=== PATIENT | female | born 1955 | race Caucasian/White ===

== ENCOUNTER → 2016-08-18 | Outpatient (CLI) | payer MEDICAID ==
--- NOTE | 2016-08-18 12:04 | REP ---
LEFT SHOULDER, THREE VIEWS: HISTORY: Impingement syndrome. There is no acute fracture or dislocation. The joint spaces are normal in appearance. IMPRESSION: There is no acute fracture or dislocation. Signed by Jan Paz MD 08/18/2016 12:06 P
== END ==
LOC: M LRY 10:40
PROVIDERS: ATTEND Family Medicine
DX: M75.42 Impingement syndrome of left shoulder (principal)

== ENCOUNTER → 2016-08-28 | Outpatient (CLI) | payer MEDICAID ==
--- NOTE | 2016-08-28 10:43 | REP ---
Chest x-ray: Two views. History: Psoriasis. Question pulmonary medication toxicity. 251.81 and 277.899. Comparison chest x-ray July 02, 2015. Findings: The lungs are symmetrically somewhat hyperinflated but remain clear. The pleural angles are sharp. Heart size is normal. The aorta is calcific. Impression: Hyperinflation consistent with some degree of COPD. No acute disease. Signed by Nirmal Dillard MD 08/28/2016 02:32 P
[2016-08-28 11:39] LABS: BASO % 0.4 % (0.0-1.0); EOS # 0.4 K/mm3 (0.0-0.50); EOS % 4.5 % (0.0-3.0); LARGE UNSTAINED CELL # 0.2 K/mm3 (0.0-0.4); LARGE UNSTAINED CELL % 2.3 % (0.0-4.0); LYMPH # 2.2 K/mm3 (1.5-4.5); LYMPH % 24.5 % (24.0-44.0); MEAN CORPUSCULAR HEMOGLOBIN 27.9 pg (27.0-33.0); MEAN CORPUSCULAR HGB CONC 32.1 g/dl (32.0-36.5); MONO # 0.6 K/mm3 (0.0-0.8); MONO % 6.3 % (0.0-5.0); NEUTROPHILS # 5.6 K/mm3 (1.8-7.7); NEUTROPHILS % 62.1 % (36.0-66.0); PLATELET COUNT, AUTOMATED 367 k/mm3 (150-450); RED CELL DISTRIBUTION WIDTH 12.6 % (11.5-14.5)
[2016-08-28 12:01] LABS: ALBUMIN 3.9 GM/DL (3.2-5.2); ALBUMIN/GLOBULIN RATIO 1.05 (1.00-1.93); ALKALINE PHOSPHATASE 83 U/L (45-117); ALT/SGPT 20 U/L (12-78); ANION GAP 9 MEQ/L (8-16); AST/SGOT 24 U/L (15-37); BILIRUBIN,DIRECT < 0.1 MG/DL (0.0-0.2); BILIRUBIN,TOTAL 0.7 MG/DL (0.2-1.0); BLOOD UREA NITROGEN 8 MG/DL (7-18); CALCIUM LEVEL 9.3 MG/DL (8.8-10.2); CARBON DIOXIDE LEVEL 31 MEQ/L (21-32); CHLORIDE LEVEL 102 MEQ/L (98-107); CREATININE FOR GFR 0.89 MG/DL (0.55-1.02); GLOMERULAR FILTRATION RATE > 60.0 (>45); GLUCOSE, FASTING 89 MG/DL (80-110); PHOSPHORUS LEVEL 4.7 MG/DL (2.5-4.9); POTASSIUM SERUM 4.4 MEQ/L (3.5-5.1); SODIUM LEVEL 142 MEQ/L (136-145); TOTAL PROTEIN 7.6 GM/DL (6.4-8.2)
== END ==
LOC: M LRY 08:41
PROVIDERS: ATTEND Nurse Practitioner Family
DX: L40.0 Psoriasis vulgaris (principal); Z51.81 Encounter for therapeutic drug level monitoring; Z79.899 Other long term (current) drug therapy

== ENCOUNTER → 2017-10-12 | Outpatient (CLI) | payer MEDICAID, OTHER ==
[2017-10-12 16:15] LABS: BASO % 0.4 % (0.0-1.0); EOS # 0.4 10^3/uL (0.0-0.50); EOS % 4.8 % (0.0-3.0); HEMATOCRIT 39.2 % (36.0-47.0); HEMOGLOBIN 12.4 g/dl (12.0-16.0); IMMATURE GRANULOCYTE % 0.5 % (0-3.0); LYMPH # 2.4 10^3/uL (1.5-4.5); LYMPH % 27.9 % (24.0-44.0); MEAN CORPUSCULAR HEMOGLOBIN 27.6 pg (27.0-33.0); MEAN CORPUSCULAR HGB CONC 31.6 g/dl (32.0-36.5); MEAN CORPUSCULAR VOLUME 87.1 fl (80.0-96.0); MONO # 0.8 10^3/uL (0.0-0.8); MONO % 9.8 % (0.0-5.0); NEUTROPHILS # 4.8 10^3/uL (1.8-7.7); NEUTROPHILS % 56.6 % (36.0-66.0); PLATELET COUNT, AUTOMATED 388 10^3/uL (150-450); WHITE BLOOD COUNT 8.5 10^3/uL (4.0-10.0)
[2017-10-12 16:56] LABS: ALBUMIN 3.8 GM/DL (3.2-5.2); ALBUMIN/GLOBULIN RATIO 1.12 (1.00-1.93); ALKALINE PHOSPHATASE 75 U/L (45-117); ALT/SGPT 18 U/L (12-78); ANION GAP 7 MEQ/L (8-16); AST/SGOT 21 U/L (7-37); BILIRUBIN,DIRECT 0.1 MG/DL (0.0-0.2); BILIRUBIN,TOTAL 0.6 MG/DL (0.2-1.0); BLOOD UREA NITROGEN 12 MG/DL (7-18); CALCIUM LEVEL 9.1 MG/DL (8.8-10.2); CARBON DIOXIDE LEVEL 31 MEQ/L (21-32); CHLORIDE LEVEL 99 MEQ/L (98-107); CREATININE FOR GFR 0.82 MG/DL (0.55-1.30); GLOMERULAR FILTRATION RATE > 60.0 (>45); GLUCOSE, FASTING 95 MG/DL (70-100); PHOSPHORUS LEVEL 3.6 MG/DL (2.5-4.9); SODIUM LEVEL 137 MEQ/L (136-145); TOTAL PROTEIN 7.2 GM/DL (6.4-8.2)
[2017-10-14 10:20] LABS: QUANTIFERON GOLD TB Negative (Negative); TB Test (QFT) Antigen 0.02 IU/mL (.); TB Test (QFT) Antigen Minus Ni <0.01 IU/mL (.); TB Test (QFT) Mitogen 6.47 IU/mL (.); TB Test (QFT) Nil 0.03 IU/mL (.)
== END ==
LOC: M LRY 11:22
DX: Z51.81 Encounter for therapeutic drug level monitoring (principal); Z79.899 Other long term (current) drug therapy; L40.0 Psoriasis vulgaris
CPT/HCPCS: 80076

== ENCOUNTER → 2018-09-05 | Outpatient (CLI) | payer OTHER ==
--- NOTE | 2018-09-05 11:28 | REP ---
PA and lateral chest: Comparison is 10/12/2017. The lung clark are chronically hyperinflated, unchanged. The interstitium is normal. There are no infiltrates. There are no pleural effusions. There is a 6 mm nodular density in the right apex in the area of rib and clavicle superimposition, not present previously. This is nonspecific and could be superimposition artifact or could be a new lung nodule. Follow-up CT is recommended for further evaluation. Impression: New 5 mm nodule like density in the right apex as described. Follow-up CT is recommended for confirmation. Chronic hyperinflation, unchanged. Otherwise, negative PA and lateral chest. Electronically Signed by Jose Elise MD 09/05/2018 11:20 A
[2018-09-05 16:47] LABS: BASO # 0.1 10^3/uL (0.0-0.2); BASO % 0.6 % (0.0-1.0); EOS # 0.5 10^3/uL (0.0-0.50); EOS % 5.2 % (0.0-3.0); HEMATOCRIT 39.5 % (36.0-47.0); HEMOGLOBIN 12.6 g/dl (12.0-15.5); LYMPH # 2.7 10^3/uL (1.5-4.5); LYMPH % 28.1 % (24.0-44.0); MEAN CORPUSCULAR HEMOGLOBIN 28.1 pg (27.0-33.0); MEAN CORPUSCULAR HGB CONC 31.9 g/dl (32.0-36.5); MONO # 0.9 10^3/uL (0.0-0.8); MONO % 9.1 % (0.0-5.0); NEUTROPHILS # 5.5 10^3/uL (1.8-7.7); NEUTROPHILS % 56.6 % (36.0-66.0); PLATELET COUNT, AUTOMATED 428 10^3/uL (150-450); RED BLOOD COUNT 4.49 10^6/uL (4.00-5.40); WHITE BLOOD COUNT 9.7 10^3/uL (4.0-10.0)
[2018-09-05 17:01] LABS: ALBUMIN 3.9 GM/DL (3.2-5.2); ALT/SGPT 19 U/L (12-78); BILIRUBIN,DIRECT < 0.1 MG/DL (0.0-0.2); BILIRUBIN,TOTAL 0.4 MG/DL (0.2-1.0); BLOOD UREA NITROGEN 9 MG/DL (7-18); CALCIUM LEVEL 9.3 MG/DL (8.8-10.2); CARBON DIOXIDE LEVEL 27 MEQ/L (21-32); CHLORIDE LEVEL 103 MEQ/L (98-107); CREATININE FOR GFR 0.88 MG/DL (0.55-1.30); GLOMERULAR FILTRATION RATE > 60.0 (>45); GLUCOSE, FASTING 92 MG/DL (70-100); PHOSPHORUS LEVEL 3.8 MG/DL (2.5-4.9); POTASSIUM SERUM 3.9 MEQ/L (3.5-5.1); SODIUM LEVEL 138 MEQ/L (136-145); TOTAL PROTEIN 7.4 GM/DL (6.4-8.2)
== END ==
LOC: M LRY 10:09
PROVIDERS: ATTEND Nurse Practitioner Family
DX: L40.0 Psoriasis vulgaris (principal); Z51.81 Encounter for therapeutic drug level monitoring; Z79.899 Other long term (current) drug therapy

== ENCOUNTER → 2018-11-15 | Outpatient (REF) | payer MEDICAID ==
[2018-11-15 12:09] LABS: BLOOD UREA NITROGEN 9 MG/DL (7-18); CARBON DIOXIDE LEVEL 33 MEQ/L (21-32); CHLORIDE LEVEL 99 MEQ/L (98-107); CHOLESTEROL LEVEL 235 MG/DL (<200); CHOLESTEROL RISK RATIO 5.465 (<5); CREATININE FOR GFR 0.83 MG/DL (0.55-1.30); GLOMERULAR FILTRATION RATE > 60.0 (>45); GLUCOSE, FASTING 92 MG/DL (70-100); HDL CHOLESTEROL 43 MG/DL (>40); LDL CHOLESTEROL 158.2 MG/DL (<100); NON-HDL-C 192 MG/DL; POTASSIUM SERUM 3.9 MEQ/L (3.5-5.1); SODIUM LEVEL 137 MEQ/L (136-145); TRIGLYCERIDES LEVEL 169 MG/DL (<150)
== END ==
LOC: M SFHCLERA 09:48
PROVIDERS: ATTEND Family Medicine
DX: I10 Essential (primary) hypertension (principal)

== ENCOUNTER → 2019-04-11 | Outpatient (REF) | payer OTHER, MEDICAID | LOC: M SFHCPLAZ 19:20 | PROVIDERS: ATTEND Dermatology | DX: D22.62 Melanocytic nevi of left upper limb, including shoulder (principal) ==

== ENCOUNTER → 2020-01-09 | Outpatient (CLI) | payer OTHER ==
--- NOTE | 2020-01-14 10:51 | REP ---
BILATERAL MAMMOGRAM WITH 3D TOMOSYNTHESIS: No comparison studies. No family history of breast cancer. Tyrer-Cuzick lifetime risk of breast cancer 6.2%. MLO and CC views of both breast performed with 3D tomosynthesis. There is moderate fibroglandular tissue present bilaterally. Volpara breast density is B. Anterolateral in the right breast , a possible smoothly marginated 4 mm nodular density is seen only on the CC view. Anterolaterally in the left breast, there is a possible nodular density 6 mm in diameter also only seen on the CC view. There is no other evidence of mass or clustered microcalcifications. There are coarse benign type calcifications bilaterally. There are small axillary lymph nodes bilaterally. IMPRESSION: BIRADS 0: BI-RADS/ACR category 0 mammogram, Incomplete: Need additional imaging evaluation and/or prior mammograms for comparison. ACR 0 incomplete. Possible 4 mm nodular density anterolaterally right breast and 6 mm nodular density anterolaterally left breast. Both are only seen in the CC projection. Recommend spot compression views and ultrasound for further evaluation. This mammogram was interpreted with the aid of an FDA-approved computer-aided detection system. A. Negative x-ray reports should not delay biopsy if a dominant or clinically suspicious mass is present. B. Four to eight percent of cancers are not identified by x-ray. C. Adenosis and dense breasts may obscure an underlying neoplasm. The patient states that she or he has not had a clinical breast exam in over a year. The patient letter being requested is M0
--- NOTE | 2020-01-19 15:39 | DEXA ---
AP SPINE L1 - L4 1.295 0.8 2.3 LT FEMUR TOTAL 0.954 -0.4 0.7 LT NECK 0.906 -0.9 0.5 RT FEMUR TOTAL 0.962 -0.4 0.8 RT NECK 0.823 -1.5 -0.1 TOTAL BODY TOTAL OTHER COMMENTS: Normal bone densitometry of the spine. Normal bone densitometry of the left hip. There is low bone density of the right hip. The increased density of the spine does represent a significant change. The increased density of the left hip does represent a significant change. The increased density of the right hip does represent significant change. The density of the spine has increased 4.4% since the initial exam on 06/01/2011. The increased 5.4% since the most recent exam on 07/19/2016. The density of the left hip has increased 7.3% since the initial exam on 06/01/2011. The density of the left hip has increased 6.1% since the most recent exam on 07/19/2016. The density of the right hip has increased 7.2% since the initial exam on 06/01/2011. The density of the right hip has increased 7.5% since the most recent exam on 07/19/2016. FOLLOW-UP: Recommendation for the next bone density exam: 2 years. [place]
== END ==
LOC: M WHC 13:16
PROVIDERS: ATTEND Family Medicine
DX: Z12.31 Encounter for screening mammogram for malignant neoplasm of breast (principal); M85.851 Other specified disorders of bone density and structure, right thigh

== ENCOUNTER → 2020-04-23 | Outpatient (CLI) | payer OTHER | LOC: M PLALAB 11:48 | PROVIDERS: ATTEND Surgery | DX: Z80.42 Family history of malignant neoplasm of prostate (principal) ==

== ENCOUNTER → 2020-11-01 | Outpatient (CLI) | payer OTHER ==
--- NOTE | 2020-11-01 11:16 | REP ---
INDICATION: 6 MONTH F/U, CAT 3. COMPARISON: 02/12/2020, 01/09/2020, 09/25/2008. TECHNIQUE: MLO and CC views bilateral breasts with tomosynthesis. FINDINGS: Moderate heterogeneous fibroglandular tissue is again noted bilaterally. Smoothly marginated subcentimeter nodule is again seen laterally and anteriorly in the right breast on the CC view. This is stable. The previously noted nodular density in the anterolateral left breast is not seen on today's exam. Parenchymal pattern is unchanged. No new mass is seen. No clustered microcalcifications are seen. Benign calcifications are present bilaterally. Right axillary lymph nodes are mildly prominent in size compared to the left. The Volpara volumetric breast density pattern is B. IMPRESSION: BIRADS/ACR category 3, probably benign. Smoothly marginated subcentimeter nodule anterolateral right breast is stable. The previously noted nodular density in the anterolateral left breast in the CC projection is not seen on today's exam, there is heterogeneously dense fibroglandular tissue throughout the left breast. No new suspicious mass or clusters of microcalcifications. Right axillary lymph nodes are slightly more prominent on the left, likely due to recent COVID vaccine. Recommend follow-up bilateral mammogram in 6 months to ensure stability of the above findings. This patient's Tyrer-Cuzick lifetime breast cancer risk assessment score is 6.2%. This mammogram was interpreted with the aid of an FDA-approved computer-aided detection system. The patient states she had a clinical breast exam in October 2020. The patient letter being requested is M3. RECOMMENDATION: Recommend six-month follow-up bilateral mammogram as discussed in detail above. <Electronically signed by Jose Chris > 11/01/20 [id number]
== END ==
LOC: M WHC 09:48
PROVIDERS: ATTEND Surgery
DX: R92.8 Other abnormal and inconclusive findings on diagnostic imaging of breast (principal); N63.10 Unspecified lump in the right breast, unspecified quadrant
CPT/HCPCS: 77066; G0279

== ENCOUNTER → 2020-12-01 | Outpatient (CLI) | payer MEDICARE, OTHER ==
--- NOTE | 2020-12-01 10:37 | REP ---
INDICATION: LOW BACK PAIN COMPARISON: 05/17/2011 TECHNIQUE: AP, lateral, bilateral oblique, and coned-down views of the lumbar spine. FINDINGS: Alignment and lordosis maintained. No acute fracture/compression injury or subluxation. Early advanced degenerative changes at L5-S1 includes endplate sclerosis, marginal spurring, facet hypertrophy and disc space narrowing. Associated chronic spondylolysis cannot be excluded. Moderate degenerative changes noted throughout the remainder of the lumbar spine including endplate sclerosis with decreased disc height and marginal spurring. IMPRESSION: Degenerative changes as noted above primarily involving L5-S1. <Electronically signed by Kvng Owens > 12/01/20 [id number]
[2020-12-01 12:44] LABS: BLOOD UREA NITROGEN 10 MG/DL (7-18); CALCIUM LEVEL 9.7 MG/DL (8.8-10.2); CARBON DIOXIDE LEVEL 29 MEQ/L (21-32); CHLORIDE LEVEL 102 MEQ/L (98-107); CHOLESTEROL LEVEL 213 MG/DL (<200); CHOLESTEROL RISK RATIO 4.733 (<5); CREATININE FOR GFR 0.82 MG/DL (0.55-1.30); GLOMERULAR FILTRATION RATE > 60.0 (>45); GLUCOSE, FASTING 84 MG/DL (70-100); HDL CHOLESTEROL 45 MG/DL (>40); LDL CHOLESTEROL 138 MG/DL (<100); NON-HDL-C 168 MG/DL; POTASSIUM SERUM 3.7 MEQ/L (3.5-5.1); SODIUM LEVEL 138 MEQ/L (136-145); TRIGLYCERIDES LEVEL 152 MG/DL (<150)
== END ==
LOC: M WUC 09:50
PROVIDERS: ATTEND Family Medicine
DX: M54.5 Low back pain (principal); I10 Essential (primary) hypertension

== ENCOUNTER → 2021-03-01 | Outpatient (CLI) | payer MEDICARE ==
--- NOTE | 2021-03-01 15:35 | REP ---
INDICATION: R92.8 6 MO BREAST U/S. Patient underwent screening mammography January 09, 2020 which was BI-RADS category 0 for bilateral nodular opacities. Diagnostic mammography February 12, 2020 with bilateral sonography was interpreted as BI-RADS category 3 in reference to a well-circumscribed small subcentimeter nodule in the anterolateral aspect of each breast. Six-month follow-up mammography was accomplished on November 01, 2020 and the anterolateral nodule in the right breast was felt to be stable. The left breast nodule could not be seen. Bilateral axillary lymph nodes were commented on. Right upper extremity COVID vaccine history August and September of 2020. At the time of the November 01, 2020 study, bilateral six-month follow-up mammography was recommend COMPARISON: Comparison sonography February 12, 2020. Comparison mammography January 09, 2020 and February 12, 2020.. TECHNIQUE: Bilateral inferior and lateral quadrant sonography is performed as originally performed on February 12, 2020. 6:00 to 9:00 on the right and 3:00 to 6:00 on the left with bilateral retroareolar scanning. FINDINGS: Heterogeneous fibroglandular background echotexture is seen bilaterally. On the left there is no evidence of cyst, mass, or suspicious acoustic shadowing. On the right, there is a tiny 0.4 cm retroareolar cyst. The previously noted cyst at 9 o'clock is not apparent. In the 7 o'clock position, there is a 7 x 2 x 5 mm oval-shaped cyst which is not previously noted but has a benign appearance. This is located 2 cm from the nipple. This has a low shear wave elastography number, 15.9 In the right axilla there are multiple normal appearing lymph nodes with thin cortical margins and preserved fatty hilar architecture. The largest of these measures 1.4 x 1.8 x 0.5 cm. No suspicious lymph node is seen. IMPRESSION: BI-RADS category 2 benign findings. Annual screening mammography can be beginning 6 months hence. <Electronically signed by Alonzo Dillard > 03/01/21 [id number]
== END ==
LOC: M WHC 09:23
PROVIDERS: ATTEND Surgery
DX: R92.8 Other abnormal and inconclusive findings on diagnostic imaging of breast (principal); N60.11 Diffuse cystic mastopathy of right breast

== ENCOUNTER → 2021-04-19 | Outpatient (CLI) | payer OTHER ==
--- NOTE | 2021-04-19 10:19 | REP ---
INDICATION: PERSONAL HX NICOTINE DEPENDENCE. COMPARISON: Multiple the latest 03/01/2020 also low-dose screening CT of the lungs TECHNIQUE: Axial noncontrast images from the thoracic inlet to the upper abdomen using low-dose lung screening technique (LDCT). As per the protocol only lung window images were sent to the read station for interpretation. FINDINGS: Once again, there is evidence of biapical pleuroparenchymal scarring status quo. Slightly irregular right upper lobe ground-glass nodule is unchanged. Just inferior to this the 2nd slightly irregular ground-glass nodules also unchanged. The 2 right middle lobe ground-glass nodules are completely stable. The barely perceptible right lower lobe ground-glass nodule is unchanged. The barely perceptible left lower lobe ground-glass nodules unchanged. No new abnormal nodules, masses, or opacities have developed. Grossly, the mediastinum and pulmonary cleve are stable. Grossly, the imaged upper abdomen and imaged osseous structures are stable. IMPRESSION: Stable lung rads category [address] low-dose screening CT examination of the lungs. Follow-up as per the revised Fleischner society criteria. <Electronically signed by Oz Miller > 04/19/21 [id number]
== END ==
LOC: M RAD 09:36
PROVIDERS: ATTEND Internal Medicine Pulmonary Disease
DX: Z12.2 Encounter for screening for malignant neoplasm of respiratory organs (principal); Z87.891 Personal history of nicotine dependence; R91.8 Other nonspecific abnormal finding of lung field

== ENCOUNTER → 2021-06-06 | Outpatient (CLI) | payer MEDICARE ==
--- NOTE | 2021-06-06 10:51 | REP ---
INDICATION: PETER DIAG MAMMO/6 MO F/U CAT 3. COMPARISON: Multiple prior mammograms the most recent a bilateral diagnostic mammogram of 11/01/2020. TECHNIQUE: 2D and 3D bilateral craniocaudal and oblique views of both breasts were obtained. FINDINGS: The Volpara volumetric breast density pattern is C, the breasts are heterogeneously dense, which may obscure small masses. The 3 mm in diameter retroareolar isodense nodule in the right breast is unchanged. The left breast has a stable appearance. IMPRESSION: BIRADS/ACR : Category 2: Benign finding. This patient's [facility] lifetime breast cancer risk assessment score is 5.9%. This mammogram was interpreted with the aid of an FDA-approved computer-aided detection system. The patient states she had a clinical breast exam in May 2021. The patient letter being requested is M2. RECOMMENDATION: Repeat screening mammography recommended 1 year (for women over 40). <Electronically signed by Kyle Mott > 06/06/21 [id number]
== END ==
LOC: M WHC 09:48
PROVIDERS: ATTEND Nurse Practitioner Women's Health
DX: R92.8 Other abnormal and inconclusive findings on diagnostic imaging of breast (principal); N63.41 Unspecified lump in right breast, subareolar
CPT/HCPCS: 77066; G0279

== ENCOUNTER → 2021-12-12 | Outpatient (CLI) | payer MEDICARE, OTHER, MEDICAID | LOC: M WUC 09:24 | PROVIDERS: ATTEND Student in an Organized Health Care Education/Training Program | DX: M25.551 Pain in right hip (principal); M85.80 Other specified disorders of bone density and structure, unspecified site ==

== ENCOUNTER → 2021-12-20 | Outpatient (CLI) | payer MEDICARE, OTHER | LOC: M WHC 10:52 | PROVIDERS: ATTEND Student in an Organized Health Care Education/Training Program | DX: M85.80 Other specified disorders of bone density and structure, unspecified site (principal); Z53.9 Procedure and treatment not carried out, unspecified reason ==

== ENCOUNTER → 2022-01-09 | Outpatient (CLI) | payer MEDICARE, OTHER | LOC: M WHC 08:56 | PROVIDERS: ATTEND Student in an Organized Health Care Education/Training Program | DX: Z13.820 Encounter for screening for osteoporosis (principal); M85.80 Other specified disorders of bone density and structure, unspecified site; M85.88 Other specified disorders of bone density and structure, other site ==

== ENCOUNTER → 2022-05-01 | Outpatient (CLI) | payer MEDICARE | LOC: M RAD 09:45 | PROVIDERS: ATTEND Internal Medicine Pulmonary Disease | DX: R91.8 Other nonspecific abnormal finding of lung field (principal); I70.0 Atherosclerosis of aorta; I25.10 Atherosclerotic heart disease of native coronary artery without angina pectoris; K55.1 Chronic vascular disorders of intestine; K44.9 Diaphragmatic hernia without obstruction or gangrene; J43.9 Emphysema, unspecified; J98.4 Other disorders of lung; K80.20 Calculus of gallbladder without cholecystitis without obstruction ==

== ENCOUNTER → 2022-05-10 | Outpatient (CLI) | payer MEDICARE ==
[2022-05-10 15:07] LABS: HEMATOCRIT 39.9 % (36.0-47.0); HEMOGLOBIN 12.4 g/dl (12.0-15.5); MEAN CORPUSCULAR HEMOGLOBIN 27.6 pg (27.0-33.0); MEAN CORPUSCULAR HGB CONC 31.1 g/dl (32.0-36.5); MEAN CORPUSCULAR VOLUME 88.9 fl (80.0-96.0); PLATELET COUNT, AUTOMATED 359 10^3/uL (150-450); RED BLOOD COUNT 4.49 10^6/uL (4.00-5.40); WHITE BLOOD COUNT 8.5 10^3/uL (4.0-10.0)
[2022-05-10 15:43] LABS: APPEARANCE, URINE MANUAL CLEAR (CLEAR); BILIRUBIN, URINE MANUAL NEGATIVE (NEGATIVE); BLOOD URINE MANUAL TRACE (NEGATIVE); COLOR, URINE MANUAL LT YELLOW (YELLOW); GLUCOSE, URINE (UA) MANUAL NEGATIVE (NEGATIVE); KETONE, URINE MANUAL NEGATIVE (NEGATIVE); LEUKOCYTE ESTERASE, URINE MAN TRACE (NEGATIVE); NITRITE, URINE MANUAL NEGATIVE (NEGATIVE); PROTEIN, URINE MANUAL NEGATIVE (NEGATIVE); SPECIFIC GRAVITY,URINE MANUAL 1.015 (1.002-1.035); UROBILINOGEN, URINE MANUAL NORMAL (NORMAL)
[2022-05-10 16:10] LABS: POTASSIUM SERUM 3.7 MEQ/L (3.5-5.1)
[2022-05-10 16:55] LABS: BACTERIA, URINE SMALL AMOUNT; RBC, URINE 0-1 /hpf (0-3); SQUAMOUS EPITHELIAL CELL URINE MOD AMOUNT /hpf (SMALL AMT); TRANSITIONAL EPI CELLS, URINE MOD AMOUNT /hpf
== END ==
LOC: M EKG 14:25
PROVIDERS: ATTEND Orthopaedic Surgery
DX: M54.16 Radiculopathy, lumbar region (principal)

== ENCOUNTER → 2022-12-01 | Outpatient (CLI) | payer MEDICARE, OTHER | LOC: M PLAIMG 08:39 | PROVIDERS: ATTEND Internal Medicine Pulmonary Disease | DX: R91.8 Other nonspecific abnormal finding of lung field (principal); J98.4 Other disorders of lung ==

== ENCOUNTER → 2023-03-07 | Outpatient (CLI) | payer MEDICARE | LOC: M RAD 08:49 | PROVIDERS: ATTEND Internal Medicine Pulmonary Disease | DX: R91.8 Other nonspecific abnormal finding of lung field (principal); I25.10 Atherosclerotic heart disease of native coronary artery without angina pectoris; K44.9 Diaphragmatic hernia without obstruction or gangrene; K80.20 Calculus of gallbladder without cholecystitis without obstruction ==

== ENCOUNTER → 2023-08-27 | Outpatient (CLI) | payer MEDICARE, MEDICAID | LOC: M PLARAD 13:31 | PROVIDERS: ATTEND Internal Medicine Pulmonary Disease | DX: R91.8 Other nonspecific abnormal finding of lung field (principal) | CPT/HCPCS: 78815; A9552 ==

== ENCOUNTER → 2023-10-05 | Outpatient (CLI) | payer MEDICARE, MEDICAID ==
[2023-10-05 12:18] LABS: PLATELET COUNT, AUTOMATED 390 10^3/uL (150-450)
[2023-10-05 12:31] LABS: INR 1.03; PARTIAL THROMBOPLASTIN TIME 28.4 SECONDS (24.8-34.2); PROTHROMBIN TIME 13.2 SECONDS (12.5-14.5)
== END ==
LOC: M WUC 09:52
PROVIDERS: ATTEND Internal Medicine Pulmonary Disease
DX: R91.8 Other nonspecific abnormal finding of lung field (principal); Z79.01 Long term (current) use of anticoagulants

== ENCOUNTER → 2023-11-13 | Outpatient (CLI) | payer MEDICARE, MEDICAID ==
[~2023-11-13] MED LIST: ACET650T15 PO; AIRD1INH2 INH; ALBU8.5H INH; BIOT1CAP2 PO; BISO1TAB18 PO; EPIP0.3I2 IM; IBUP200C25 PO
== END ==
LOC: M CARPUL 14:14
PROVIDERS: ATTEND Internal Medicine Pulmonary Disease
DX: J44.9 Chronic obstructive pulmonary disease, unspecified (principal)

== ENCOUNTER → 2023-11-16 | Outpatient (CLI) | payer MEDICARE, MEDICAID ==
[2023-11-16 11:20] LABS: INR 1.05; PARTIAL THROMBOPLASTIN TIME 27.8 SECONDS (24.8-34.2); PROTHROMBIN TIME 13.4 SECONDS (12.5-14.5)
[2023-11-16 11:24] LABS: BLOOD UREA NITROGEN 13 MG/DL (9-23); CALCIUM LEVEL 9.4 MG/DL (8.3-10.6); CARBON DIOXIDE LEVEL 31 MMOL/L (20-31); CHLORIDE LEVEL 101 MMOL/L (98-107); CREATININE FOR GFR 0.92 MG/DL (0.55-1.30); GLOMERULAR FILTRATION RATE > 60.0 (>45); GLUCOSE, FASTING 80 MG/DL (74-106); POTASSIUM SERUM 3.8 MMOL/L (3.5-5.1); SODIUM LEVEL 139 MMOL/L (136-145)
== END ==
LOC: M WUC 08:48
PROVIDERS: ATTEND Surgery
DX: C34.2 Malignant neoplasm of middle lobe, bronchus or lung (principal)

== ENCOUNTER → 2023-12-31 | Outpatient (CLI) | payer MEDICARE, MEDICAID ==
[~2023-12-31] MED LIST changes: +HOME MED LIST COMPLETE! XX SCH; +LIDOCAINE 1% MDV 20ML VIAL As Ordered ONE
[2023-12-31 07:35] VITALS: TEMP 97.5
[2023-12-31 07:59] LABS: HEMATOCRIT 43.3 % (36.0-47.0); HEMOGLOBIN 13.7 g/dl (12.0-15.5); MEAN CORPUSCULAR HEMOGLOBIN 28.4 pg (27.0-33.0); MEAN CORPUSCULAR HGB CONC 31.6 g/dl (32.0-36.5); MEAN CORPUSCULAR VOLUME 89.6 fl (80.0-96.0); PLATELET COUNT, AUTOMATED 323 10^3/uL (150-450); RED BLOOD COUNT 4.83 10^6/uL (4.00-5.40); WHITE BLOOD COUNT 7.4 10^3/uL (4.0-10.0)
[2023-12-31 08:22] LABS: INR 0.95; PARTIAL THROMBOPLASTIN TIME 27.1 SECONDS (24.8-34.2); PROTHROMBIN TIME 12.4 SECONDS (12.5-14.5)
[2023-12-31 11:00] VITALS: BP 154/78; O2SAT 96
== END ==
LOC: M IRPRO 07:26
PROVIDERS: ATTEND Surgery
DX: C34.2 Malignant neoplasm of middle lobe, bronchus or lung (principal)

== ENCOUNTER → 2024-05-05 | Outpatient (CLI) | payer MEDICARE, MEDICAID ==
[~2024-05-05] MED LIST changes: -HOME MED LIST COMPLETE! XX SCH; -LIDOCAINE 1% MDV 20ML VIAL As Ordered ONE
[2024-05-05 10:57] LABS: BASO # 0.1 10^3/uL (0.0-0.2); BASO % 0.8 % (0.0-1.0); EOS # 0.4 10^3/uL (0.0-0.5); EOS % 5.4 % (0.0-3.0); HEMATOCRIT 41.6 % (36.0-47.0); HEMOGLOBIN 13.2 g/dl (12.0-15.5); LYMPH # 1.6 10^3/uL (1.5-5.0); LYMPH % 25.2 % (24.0-44.0); MEAN CORPUSCULAR HEMOGLOBIN 29.3 pg (27.0-33.0); MEAN CORPUSCULAR HGB CONC 31.7 g/dl (32.0-36.5); MEAN CORPUSCULAR VOLUME 92.2 fl (80.0-96.0); MONO # 0.7 10^3/uL (0.0-0.8); MONO % 11.3 % (2.0-8.0); NEUTROPHILS # 3.7 10^3/uL (1.5-8.5); NEUTROPHILS % 57.1 % (36.0-66.0); PLATELET COUNT, AUTOMATED 348 10^3/uL (150-450); RED BLOOD COUNT 4.51 10^6/uL (4.00-5.40); WHITE BLOOD COUNT 6.5 10^3/uL (4.0-10.0)
[2024-05-05 11:24] LABS: CREATININE, URINE 143.6 MG/DL
[2024-05-05 11:25] LABS: MALB URINE SIEMENS < 3.0 MG/L
[2024-05-05 11:28] LABS: ALKALINE PHOSPHATASE 53 U/L (46-116); ALT/SGPT 17 U/L (7.0-40); AST/SGOT 16 U/L (<34); BILIRUBIN,TOTAL 0.9 MG/DL (0.3-1.2); BLOOD UREA NITROGEN 11 MG/DL (9-23); CALCIUM LEVEL 9.7 MG/DL (8.3-10.6); CARBON DIOXIDE LEVEL 30 MMOL/L (20-31); CHLORIDE LEVEL 106 MMOL/L (98-107); CHOLESTEROL LEVEL 206 MG/DL (<200); CHOLESTEROL RISK RATIO 4.49 (<5); CREATININE FOR GFR 0.98 MG/DL (0.55-1.30); GLOMERULAR FILTRATION RATE > 60.0 (>45); GLUCOSE, FASTING 97 MG/DL (74-106); HDL CHOLESTEROL 45.8 MG/DL (>40); LDL CHOLESTEROL 133.6 MG/DL (<100); NON-HDL-C 160.2 MG/DL; POTASSIUM SERUM 4.2 MMOL/L (3.5-5.1); SODIUM LEVEL 139 MMOL/L (136-145); TOTAL PROTEIN 7.3 G/DL (5.7-8.2); TRIGLYCERIDES LEVEL 133 MG/DL (<150)
[2024-05-05 11:43] LABS: HEMOGLOBIN A1c 5.7 % (4.0-6.0)
== END ==
LOC: M PLALAB 07:58
PROVIDERS: ATTEND Student in an Organized Health Care Education/Training Program
DX: Z00.00 Encounter for general adult medical examination without abnormal findings (principal); Z87.39 Personal history of other diseases of the musculoskeletal system and connective tissue; I10 Essential (primary) hypertension; C34.91 Malignant neoplasm of unspecified part of right bronchus or lung; J44.9 Chronic obstructive pulmonary disease, unspecified; Z79.899 Other long term (current) drug therapy; Z79.51 Long term (current) use of inhaled steroids

== ENCOUNTER → 2024-05-19 | Outpatient (CLI) | payer MEDICARE, MEDICAID | LOC: M PLAIMG 12:22 | PROVIDERS: ATTEND Surgery | DX: C34.2 Malignant neoplasm of middle lobe, bronchus or lung (principal) ==

== ENCOUNTER → 2024-05-20 | Outpatient (CLI) | payer MEDICARE, MEDICAID | LOC: M WHC 08:28 | PROVIDERS: ATTEND Student in an Organized Health Care Education/Training Program | DX: Z12.31 Encounter for screening mammogram for malignant neoplasm of breast (principal); Z87.39 Personal history of other diseases of the musculoskeletal system and connective tissue; R92.333 Mammographic heterogeneous density, bilateral breasts; Z78.0 Asymptomatic menopausal state ==

== ENCOUNTER → 2024-05-28 | Outpatient (REF) | payer MEDICARE, MEDICAID, OTHER | LOC: M SFHCPLAZ 15:22 | PROVIDERS: ATTEND Physician Assistant Medical | DX: J02.9 Acute pharyngitis, unspecified (principal) ==

== ENCOUNTER → 2024-06-04 | Outpatient (CLI) | payer MEDICARE, MEDICAID ==
[2024-06-04 10:30] LABS: HEMATOCRIT 43.1 % (36.0-47.0); HEMOGLOBIN 13.6 g/dl (12.0-15.5); MEAN CORPUSCULAR HEMOGLOBIN 29.3 pg (27.0-33.0); MEAN CORPUSCULAR HGB CONC 31.6 g/dl (32.0-36.5); MEAN CORPUSCULAR VOLUME 92.9 fl (80.0-96.0); PLATELET COUNT, AUTOMATED 353 10^3/uL (150-450); RED BLOOD COUNT 4.64 10^6/uL (4.00-5.40); WHITE BLOOD COUNT 8.9 10^3/uL (4.0-10.0)
[2024-06-04 15:25] LABS: MONO REFLEX EBV COMP NEGATIVE (NEGATIVE)
[2024-06-06 13:46] LABS: EBV VIRAL CAPSID AG IGM < 36.00 U/mL (<36.00)
== END ==
LOC: M PLALAB 09:27
PROVIDERS: ATTEND Physician Assistant Medical
DX: J02.9 Acute pharyngitis, unspecified (principal)

== ENCOUNTER → 2024-06-12 | Outpatient (CLI) | payer MEDICARE, MEDICAID ==
[2024-06-12 14:40] LABS: BASO % 0.3 % (0.0-1.0); EOS # 0.5 10^3/uL (0.0-0.5); EOS % 4.4 % (0.0-3.0); HEMATOCRIT 42.9 % (36.0-47.0); HEMOGLOBIN 13.6 g/dl (12.0-15.5); LYMPH # 1.7 10^3/uL (1.5-5.0); LYMPH % 14.7 % (24.0-44.0); MEAN CORPUSCULAR HEMOGLOBIN 28.9 pg (27.0-33.0); MEAN CORPUSCULAR HGB CONC 31.7 g/dl (32.0-36.5); MEAN CORPUSCULAR VOLUME 91.3 fl (80.0-96.0); MONO # 1.1 10^3/uL (0.0-0.8); MONO % 9.2 % (2.0-8.0); NEUTROPHILS # 8.2 10^3/uL (1.5-8.5); NEUTROPHILS % 70.8 % (36.0-66.0); PLATELET COUNT, AUTOMATED 339 10^3/uL (150-450); WHITE BLOOD COUNT 11.6 10^3/uL (4.0-10.0)
[2024-06-12 14:50] LABS: FREE T4 1.11 NG/DL (0.89-1.76)
[2024-06-12 14:51] LABS: THYROID STIMULATING HORMONE 3.903 uIU/ML (0.55-4.78)
== END ==
LOC: M PLALAB 09:41
PROVIDERS: ATTEND Physician Assistant Medical
DX: E04.1 Nontoxic single thyroid nodule (principal)

== ENCOUNTER → 2024-08-08 | Outpatient (CLI) | payer MEDICARE, MEDICAID ==
[~2024-08-08] MED LIST changes: +GABA-1171 PO
== END ==
LOC: M ONCR 08:15
PROVIDERS: ATTEND General Practice
DX: C09.0 Malignant neoplasm of tonsillar fossa (principal); D39.12 Neoplasm of uncertain behavior of left ovary; Z87.891 Personal history of nicotine dependence; Z90.710 Acquired absence of both cervix and uterus; Z85.118 Personal history of other malignant neoplasm of bronchus and lung; Z85.828 Personal history of other malignant neoplasm of skin; Z90.2 Acquired absence of lung [part of]; Z80.1 Family history of malignant neoplasm of trachea, bronchus and lung; Z80.42 Family history of malignant neoplasm of prostate; Z80.8 Family history of malignant neoplasm of other organs or systems; Z91.030 Bee allergy status; Z79.51 Long term (current) use of inhaled steroids; Z79.899 Other long term (current) drug therapy
CPT/HCPCS: 31575; G0463

== ENCOUNTER 2024-09-04 08:57 | Outpatient (RCR) | payer MEDICARE, MEDICAID | END 2024-09-19 | LOC: M ONCR 08:57 | PROVIDERS: ATTEND General Practice | DX: Z51.0 Encounter for antineoplastic radiation therapy (principal); C09.0 Malignant neoplasm of tonsillar fossa ==

== ENCOUNTER → 2024-10-20 | Outpatient (RCR) | payer MEDICARE, MEDICAID | LOC: M ONCR 09-22 08:24 | PROVIDERS: ATTEND General Practice | DX: Z51.0 Encounter for antineoplastic radiation therapy (principal); C09.0 Malignant neoplasm of tonsillar fossa ==

== ENCOUNTER → 2024-10-21 | Outpatient (CLI) | payer MEDICARE, MEDICAID | LOC: M RAD 11:42 | PROVIDERS: ATTEND Nurse Practitioner Family | DX: M79.89 Other specified soft tissue disorders (principal) ==

== ENCOUNTER → 2024-11-19 | Outpatient (RCR) | payer MEDICARE, MEDICAID ==
[~2024-11-19] MED LIST changes: +LIDO15SO8 PO; +MAGICMW SSP; +OXYC1SOL3 PO
== END ==
LOC: M ONCR 10-21 09:50
PROVIDERS: ATTEND General Practice
DX: Z51.0 Encounter for antineoplastic radiation therapy (principal); C09.0 Malignant neoplasm of tonsillar fossa

== ENCOUNTER → 2024-11-20 | Outpatient (CLI) | payer MEDICARE, MEDICAID | LOC: M RAD 10:46 | PROVIDERS: ATTEND Surgery | DX: C34.2 Malignant neoplasm of middle lobe, bronchus or lung (principal); J98.11 Atelectasis; J43.9 Emphysema, unspecified; R91.8 Other nonspecific abnormal finding of lung field; K80.20 Calculus of gallbladder without cholecystitis without obstruction ==

== ENCOUNTER → 2025-01-30 | Outpatient (CLI) | payer MEDICARE, MEDICAID ==
[~2025-01-30] MED LIST changes: +DULO1CAP6 PO; +ONDA-83 PO
== END ==
LOC: M ONCR 09:37
PROVIDERS: ATTEND General Practice
DX: D39.11 Neoplasm of uncertain behavior of right ovary (principal); Z79.899 Other long term (current) drug therapy; Z85.118 Personal history of other malignant neoplasm of bronchus and lung; Z85.43 Personal history of malignant neoplasm of ovary; Z85.818 Personal history of malignant neoplasm of other sites of lip, oral cavity, and pharynx; Z87.891 Personal history of nicotine dependence; Z92.3 Personal history of irradiation
CPT/HCPCS: 31575; G0463

== ENCOUNTER → 2025-02-24 | Outpatient (CLI) | payer MEDICARE, MEDICAID ==
[~2025-02-24] MED LIST changes: +ACET-1515 PO; -ACET650T15 PO
[2025-02-24 14:30] LABS: ALT/SGPT 9 U/L (7.0-40); AST/SGOT 18 U/L (<34); CALCIUM LEVEL 9.3 MG/DL (8.3-10.6); CARBON DIOXIDE LEVEL 31 MMOL/L (20-31); CHLORIDE LEVEL 100 MMOL/L (98-107); CREATININE FOR GFR 0.71 MG/DL (0.55-1.30); GLOMERULAR FILTRATION RATE > 90.0 (>45); POTASSIUM SERUM 4.1 MMOL/L (3.5-5.1); SODIUM LEVEL 140 MMOL/L (136-145)
== END ==
LOC: M PLALAB 11:26
PROVIDERS: ATTEND Family Medicine
DX: Z01.818 Encounter for other preprocedural examination (principal)

== ENCOUNTER 2025-03-04 09:37 | Outpatient (RCR) | payer MEDICARE, MEDICAID | END 2025-03-22 | LOC: M ONCR 09:37 | PROVIDERS: ATTEND General Practice | DX: Z51.0 Encounter for antineoplastic radiation therapy (principal); C34.32 Malignant neoplasm of lower lobe, left bronchus or lung ==

== ENCOUNTER → 2025-03-04 | Outpatient (CLI) | payer MEDICARE, MEDICAID ==
[2025-03-04 10:34] LABS: BASO # 0.0 10^3/uL (0.0-0.2); BASO % 0.9 % (0.0-1.0); EOS # 0.3 10^3/uL (0.0-0.5); EOS % 5.8 % (0.0-3.0); LYMPH # 0.7 10^3/uL (1.5-5.0); LYMPH % 17.1 % (24.0-44.0); MONO # 0.6 10^3/uL (0.0-0.8); MONO % 13.2 % (2.0-8.0); NEUTROPHILS # 2.7 10^3/uL (1.5-8.5); NEUTROPHILS % 62.5 % (36.0-66.0); PLATELET COUNT, AUTOMATED 284 10^3/uL (150-450)
== END ==
LOC: M PLALAB 09:21
PROVIDERS: ATTEND Family Medicine
DX: Z01.818 Encounter for other preprocedural examination (principal)

== ENCOUNTER → 2025-04-21 | Outpatient (CLI) | payer MEDICARE, MEDICAID ==
[2025-04-21 12:15] LABS: ALT/SGPT 10.0 U/L (7.0-40); AST/SGOT 16.0 U/L (<34); CALCIUM LEVEL 9.0 MG/DL (8.3-10.6); CARBON DIOXIDE LEVEL 29.0 MMOL/L (20-31); CHLORIDE LEVEL 103.0 MMOL/L (98-107); CREATININE FOR GFR 0.78 MG/DL (0.55-1.30); GLOMERULAR FILTRATION RATE 82.2 (>45); POTASSIUM SERUM 4.1 MMOL/L (3.5-5.1); SODIUM LEVEL 137.0 MMOL/L (136-145)
== END ==
LOC: M ONCM 10:58
PROVIDERS: ATTEND General Practice
DX: C09.0 Malignant neoplasm of tonsillar fossa (principal)

== ENCOUNTER → 2025-04-28 | Outpatient (CLI) | payer MEDICARE, MEDICAID ==
[~2025-04-28] MED LIST changes: +ISOVUE-370 76% 100 ML VIAL As Ordered ONE; +LEVO25TA5 PO
== END ==
LOC: M RAD 10:38
PROVIDERS: ATTEND General Practice
DX: C09.0 Malignant neoplasm of tonsillar fossa (principal)
CPT/HCPCS: 70491; 71260; Q9967

== ENCOUNTER → 2025-05-05 | Outpatient (CLI) | payer MEDICARE, MEDICAID ==
[~2025-05-05] MED LIST changes: -ISOVUE-370 76% 100 ML VIAL As Ordered ONE
[2025-05-05 13:13] LABS: FREE T4 1.03 NG/DL (0.89-1.76)
== END ==
LOC: M ONCR 10:11
PROVIDERS: ATTEND General Practice
DX: C34.32 Malignant neoplasm of lower lobe, left bronchus or lung (principal); C09.0 Malignant neoplasm of tonsillar fossa; D27.1 Benign neoplasm of left ovary; E89.0 Postprocedural hypothyroidism; Z87.891 Personal history of nicotine dependence; Z92.3 Personal history of irradiation; Z91.030 Bee allergy status; Z79.51 Long term (current) use of inhaled steroids; Z79.899 Other long term (current) drug therapy
CPT/HCPCS: 36415; 84439; 84443; G0463

== ENCOUNTER → 2025-06-23 | Outpatient (REF) | payer MEDICARE | LOC: M SFHCPLAZ 09:08 | PROVIDERS: ATTEND Family Medicine | DX: Z53.9 Procedure and treatment not carried out, unspecified reason (principal) ==

== ENCOUNTER → 2025-06-23 | Outpatient (CLI) | payer MEDICARE ==
[2025-06-23 11:35] LABS: FREE T4 1.1 NG/DL (0.89-1.76)
== END ==
LOC: M PLALAB 09:28
PROVIDERS: ATTEND Family Medicine
DX: Z00.00 Encounter for general adult medical examination without abnormal findings (principal); E03.9 Hypothyroidism, unspecified

== ENCOUNTER → 2025-07-01 | Outpatient (REF) | payer MEDICARE | LOC: M SFHCPLAZ 07:24 | PROVIDERS: ATTEND Family Medicine | DX: Z53.9 Procedure and treatment not carried out, unspecified reason (principal) ==